=== PATIENT | male | born 1950 | race Caucasian/White ===

== ENCOUNTER 2017-06-15 09:29 | Emergency (ER) | payer OTHER ==
[~2017-06-15] VITALS: Ht 172.7 cm; Wt 70.0 kg
[~2017-06-15 09:29] MED LIST: ACAR50TA PO; ACET-141 PO; AMLO2.5T78 PO; ASPI-664 PO; BUS5 PO; CILO100T PO; DOCU250C68 PO; DUTA0.5C PO; EMPA25TA PO; FOLI-49 PO; GABA100C14 PO; HYDR-906 PO; LISI20TA11 PO; PANT40TA3 PO; PIOG30TA26 PO; PRAV40TA76 PO; SITA1TAB5 PO; TAMS0.4C2 PO; TRAZ50TA18 PO
[2017-06-15 09:30] VITALS: Ht 172.7 cm; Wt 70.0 kg
[2017-06-15] MEDS ORDERED: FLUORESCEIN STRIP RIGHT EYE ONE (10:00)
[2017-06-15] MEDS ORDERED: TETRACAINE 0.5% 4 ML OPH BOTH EYES ONE (10:00)
[2017-06-15] MEDS ORDERED: FLUORESCEIN STRIP LEFT EYE ONE (10:00)
--- NOTE | 2017-06-15 12:30 | ERD ---
ER Documentation Chief Complaint Chief Complaint FEELS SOMETHING IN LT EYE HPI 56-year-old male complaining of bilateral eye irritation 3-4 days. Patient states that he feels like something is in his eye. He is blind in the left eye , but denies decreased vision and his right eye. Denies eye injury or foreign body. Denies itching or burning of the eye. Denies eye discharge. Denies floaters, falling curtain, or other visual defects. ROS All systems reviewed and are negative except as per history of present illness. Medications Home Meds Active Scripts Hydrocodone/Acetaminophen ([place] 5-325 Tablet) 1 Each Tablet, 1 EACH PO Q6H for PAIN, #10 TAB Prov:NEGIN BENAVIDEZ EMERGENCY MANAGEMENT PROGRAM SPECIALIST 07/30/16 Reported Medications Empagliflozin (Jardiance) 25 Mg Tablet, 25 MG PO DAILY, TAB 07/29/16 Sitagliptin Phos/Metformin HCl (Janumet 50-1,000 mg Tablet) 1 Each Tablet, 1 EACH PO BID, TAB 07/29/16 Trazodone Hcl* (Desyrel*) 50 Mg Tablet, 50 MG PO QHS, #30 TAB 07/29/16 Dutasteride* (Avodart*) 0.5 Mg Capsule, 0.5 MG PO DAILY, CAP 07/29/16 Tamsulosin Hcl* (Tamsulosin Hcl*) 0.4 Mg Cap.er.24h, 0.4 MG PO HS, CAP 07/29/16 Pantoprazole* (Protonix*) 40 Mg Tablet.dr, 40 MG PO DAILY, TAB 07/29/16 Aspirin (Low Dose Aspirin) 81 Mg Tablet.dr, 81 MG PO DAILY, #30 TAB 07/29/16 Amlodipine Besylate* (Amlodipine Besylate*) 2.5 Mg Tablet, 2.5 MG PO DAILY, #30 TAB 07/29/16 Docusate Sodium* (Dok*) 250 Mg Capsule, 250 MG PO TID, #60 CAP 07/29/16 Folic Acid* (Folic Acid*) 1 Mg Tablet, 1 MG PO DAILY, TAB 07/29/16 Cilostazol* (Cilostazol*) 100 Mg Tablet, 100 MG PO BID, TAB 02/23/15 Acetaminophen* (Acetaminophen*) 500 MG Extra Strength Tablet, 500 MG PO Q4H Y for PAIN AND OR ELEVATED TEMP, TAB 02/23/15 Gabapentin* (Gabapentin*) 100 Mg Capsule, 200 MG PO QHS, CAP 02/23/15 Gabapentin* (Gabapentin*) 100 Mg Capsule, 100 MG PO QAM, CAP 02/23/15 Lisinopril* (Lisinopril*) 20 Mg Tablet, 20 MG PO DAILY, TAB 02/23/15 Buspirone Hcl* (Buspar*) 5 Mg Tab, 5 MG PO TID, TAB 02/23/15 Acarbose* (Precose*) 50 Mg Tablet, 100 MG PO TID, TAB 02/23/15 Pravastatin Sodium* (Pravastatin Sodium*) 40 Mg Tablet, 40 MG PO HS, TAB 02/23/15 Pioglitazone Hcl* (Pioglitazone Hcl*) 30 Mg Tablet, 30 MG PO DAILY, TAB 02/23/15 Allergies Allergies: Coded Allergies: No Known Allergy (Unverified , 07/29/16) PMhx/Soc History of diabetes, hypertension, high cholesterol. History of Surgery: No Anesthesia Reaction: No Hx Neurological Disorder: No Hx Respiratory Disorders: No Hx Cardiac Disorders: No Hx Psychiatric Problems: No Hx Miscellaneous Medical Probl: No Hx Alcohol Use: No Hx Substance Use: No Hx Tobacco Use: No Smoking Status: Never smoker Physical Exam Vitals Vital Signs Date Time Temp Pulse Resp B/P Pulse Ox O2 Delivery O2 Flow Rate FiO2 06/15/17 09:30 97.6 81 16 115/61 100 Physical Exam General: Well-developed, well-nourished, conscious and coherent, in no distress Skin: Warm and dry without rash, good texture and turgor Head: Normocephalic without evidence of trauma Eyes: Sclera and conjunctivae normal; pupils equal, round. Reactive to light on the right, no light reaction on the left. Left eye deviates to the left. Extraocular movements are intact. Foreign body noted. Neck: Supple without meningismus or adenopathy. Carotids are equal. Trachea midline. No bruits or JVD Chest: Normal AP diameter. Good expansion without retractions. Nontender. Lungs are clear to auscultate bilaterally with good tidal volume Heart: Regular rate and rhythm. No murmur, rub, or gallops heard Extremities: Full range of motion. Good strength bilaterally. No clubbing, cyanosis, or edema. Peripheral pulses are intact. Sensation intact Neuro: Alert and oriented 4, GCS 15. Cranial nerves grossly intact. Motor and sensory exams nonfocal. Moves all extremities. Speech clear. Gait normal Results 24 hrs Current Medications Medications (Trade) Dose Ordered Sig/Tianna Route PRN Reason Start Time Stop Time Status Last Admin Dose Admin Tetracaine HCl (Tetracaine 0.5% Steri-Unit Yolanda) 1 drop ONCE ONCE BOTH EYES 06/15/17 10:00 06/15/17 10:01 DC Fluorescein Sodium (Zrhjr-X-Vzuui) 1 strip ONCE ONCE LEFT EYE 06/15/17 10:00 06/15/17 10:01 DC Fluorescein Sodium (Wxjmd-C-Uewnn) 1 strip ONCE ONCE RIGHT EYE 06/15/17 10:00 06/15/17 10:01 DC Procedures/MDM Tetracaine ophthalmic solution was instilled into patient's bilateral eyes. Fluoresceins dye was then applied. Patient was examined under Wood's lamp. No dye uptake was noted. Bilateral eye pressures checked with Peter-Pen, eye pressures are 20 on the right and 22 on the left. Visual acuity: Right eye 20/25, left eye no vision. Well-appearing 66-year-old male present ED was lateral right irritation 3-4 days. Exams are unremarkable. I doubt acute angle-closure glaucoma, optic neuritis, central retinal artery occlusion, retinal detachment, orbital or periorbital cellulitis, corneal ulcer, or foreign body. Patient advised to follow-up with manager [facility] for further evaluation. Patient appears well, stable for discharge and outpatient management. Medical decision making shared with patient and family. Education provided to patient and family. Patient and family expressed understanding of the plan. Medications on discharge: None. Follow-up: Primary care provider in 2-3 days or return to ED if worse. Disclaimer: Inadvertent spelling and grammatical errors are likely due to EHR/ dictation software use and do not reflect on the overall quality of patient care. Also, please note that the electronic time recorded on this note does not necessarily reflect the actual time of the patient encounter. Departure Diagnosis: Primary Impression: Pain in eye Condition: Stable Patient Instructions: What Is Diabetic Retinopathy? Referrals: SCOTT DENISE (PCP) [facility] Hours: Mon - Fri 9:00 AM - 5:00 PM Additional Instructions: Specialist:Usted tiene preet condicin mdica que requiere que brodie a un especialista dentro de los prximos 1-2 sheth.POR FAVOR,CON MARQUEZ SEGUIMIENTO DE PRIMARIA PHSICIAN refferal. SI USTED NO TIENE UN MDICO GENERAL Y / O USTED NO PUEDE PAGAR lilly a un mdico,los siguientes mejía RECURSOS sido suministrado a usted. ES MARQUEZ RESPONSABILIDAD PARA SER VISTOS POR EL ESPECIALISTA: RAMESH BERRY NP Jun 15, 2017 12:30
== END 2017-06-15 11:35 | disposition home or self-care (01) ==
LOC: FTE 09:29
DX: H57.13 Ocular pain, bilateral (principal); E11.9 Type 2 diabetes mellitus without complications; I10 Essential (primary) hypertension; Z79.82 Long term (current) use of aspirin; Z79.84 Long term (current) use of oral hypoglycemic drugs
CPT/HCPCS: 99283

== ENCOUNTER 2017-08-09 18:26 | Emergency (ER) | payer OTHER ==
[~2017-08-09] VITALS: Ht 167.6 cm; Wt 69.6 kg
[2017-08-09 18:30] VITALS: Ht 167.6 cm; Wt 69.6 kg
[2017-08-09] MEDS ORDERED: SOD CHLORIDE 0.9% 500 ML IV STA (19:10)
[2017-08-09] MEDS ORDERED: ASPIRIN 325 MG TAB PO STA (19:10)
[2017-08-09 19:29] LABS: BASOPHILS % 0.3 % (0.0-2.0); EOSINOPHILS # 0.1 10^3/ul (0.0-0.5); HEMATOCRIT 45.1 % (42.0-52.0); HEMOGLOBIN 14.5 g/dl (14.0-18.0); LYMPHOCYTES # 1.5 10^3/ul (0.8-2.9); LYMPHOCYTES % 21.8 % (15.0-51.0); MEAN CORPUSCULAR HEMOGLOBIN 28.9 pg (29.0-33.0); MEAN CORPUSCULAR HGB CONC 32.2 g/dl (32.0-37.0); MEAN PLATELET VOLUME 9.9 fl (7.4-10.4); MONOCYTE # 0.6 10^3/ul (0.3-0.9); MONOCYTES % 8.2 % (0.0-11.0); NEUTROPHIL # 4.8 10^3/ul (1.6-7.5); NEUTROPHILS % 68.4 % (39.0-77.0); PLATELET COUNT 237 10^3/UL (140-415); RED BLOOD COUNT 5.01 10^6/ul (4.70-6.10); RED CELL DISTRIBUTION WIDTH 13.7 % (11.5-14.5)
[2017-08-09 19:52] LABS: ANION GAP 15 (8-16); BLOOD UREA NITROGEN 25 mg/dl (7-20); CALCIUM 9.3 mg/dl (8.4-10.2); CARBON DIOXIDE 26 mmol/L (21-31); CHLORIDE 104 mmol/L (97-110); CREATININE 1.29 mg/dl (0.61-1.24); GLUCOSE 129 mg/dl (70-220); POTASSIUM 4.2 mmol/L (3.5-5.1); SODIUM 141 mmol/L (135-144)
[2017-08-09 20:03] LABS: B-TYPE NATRIURETIC PEPTIDE 60 PG/ML (0-125)
[2017-08-09 20:08] LABS: TROPONIN-I < 0.012 ng/ml (0.00-0.12)
--- NOTE | 2017-08-09 20:17 | RADRPT ---
PROCEDURE: XR Chest. CLINICAL INDICATION: Chest Pain. TECHNIQUE: Single frontal view of the chest was obtained COMPARISON: Chest radiograph dated July 29, 2016. FINDINGS: The heart is normal in size. The lungs are clear with no focal consolidations, pleural effusions, or pneumothorax. Degenerative changes of the spine are present. IMPRESSION: 1. No acute cardiopulmonary disease. RPTAT:AAJJ Physician Julio César Date Time Electronically viewed and signed by Martín Edwadr Physician on 08/09/2017 20:17 QL/
[2017-08-09 21:00] VITALS: TEMP 97.5
[2017-08-09] MEDS ORDERED: LIDOCAINE/MYLANTA 40 ML BTL PO ONE (23:00)
[2017-08-10] MEDS ORDERED: RANI150T9 PO (00:41)
--- NOTE | 2017-08-10 00:52 | ERD ---
ER Documentation Chief Complaint Chief Complaint chest pain w/ palpitation since 2 hours ago HPI This 66-year-old male presents with palpitations 2 hours also has a sharp substernal chest pain. Denies any shortness of breath or nausea. States that he was resting when the pain occurred. He had recently eaten. ROS All systems reviewed and are negative except as per history of present illness. Medications Home Meds Active Scripts Ranitidine Hcl* (Zantac*) 150 Mg Tablet, 150 MG PO BID, #60 TAB Prov:ISABEL BERG DO 08/10/17 Hydrocodone/Acetaminophen ([place] 5-325 Tablet) 1 Each Tablet, 1 EACH PO Q6H for PAIN, #10 TAB Prov:NEIGN BENAVIDEZ NURSERY SUPERVISOR 07/30/16 Reported Medications Empagliflozin (Jardiance) 25 Mg Tablet, 25 MG PO DAILY, TAB 07/29/16 Sitagliptin Phos/Metformin HCl (Janumet 50-1,000 mg Tablet) 1 Each Tablet, 1 EACH PO BID, TAB 07/29/16 Trazodone Hcl* (Desyrel*) 50 Mg Tablet, 50 MG PO QHS, #30 TAB 07/29/16 Dutasteride* (Avodart*) 0.5 Mg Capsule, 0.5 MG PO DAILY, CAP 07/29/16 Tamsulosin Hcl* (Tamsulosin Hcl*) 0.4 Mg Cap.er.24h, 0.4 MG PO HS, CAP 07/29/16 Pantoprazole* (Protonix*) 40 Mg Tablet.dr, 40 MG PO DAILY, TAB 07/29/16 Aspirin (Low Dose Aspirin) 81 Mg Tablet.dr, 81 MG PO DAILY, #30 TAB 07/29/16 Amlodipine Besylate* (Amlodipine Besylate*) 2.5 Mg Tablet, 2.5 MG PO DAILY, #30 TAB 07/29/16 Docusate Sodium* (Dok*) 250 Mg Capsule, 250 MG PO TID, #60 CAP 07/29/16 Folic Acid* (Folic Acid*) 1 Mg Tablet, 1 MG PO DAILY, TAB 07/29/16 Cilostazol* (Cilostazol*) 100 Mg Tablet, 100 MG PO BID, TAB 02/23/15 Acetaminophen* (Acetaminophen*) 500 MG Extra Strength Tablet, 500 MG PO Q4H Y for PAIN AND OR ELEVATED TEMP, TAB 02/23/15 Gabapentin* (Gabapentin*) 100 Mg Capsule, 200 MG PO QHS, CAP 02/23/15 Gabapentin* (Gabapentin*) 100 Mg Capsule, 100 MG PO QAM, CAP 02/23/15 Lisinopril* (Lisinopril*) 20 Mg Tablet, 20 MG PO DAILY, TAB 02/23/15 Buspirone Hcl* (Buspar*) 5 Mg Tab, 5 MG PO TID, TAB 02/23/15 Acarbose* (Precose*) 50 Mg Tablet, 100 MG PO TID, TAB 02/23/15 Pravastatin Sodium* (Pravastatin Sodium*) 40 Mg Tablet, 40 MG PO HS, TAB 02/23/15 Pioglitazone Hcl* (Pioglitazone Hcl*) 30 Mg Tablet, 30 MG PO DAILY, TAB 02/23/15 Allergies Allergies: Coded Allergies: No Known Allergy (Unverified , 08/09/17) PMhx/Soc History of Surgery: No Anesthesia Reaction: No Hx Neurological Disorder: No Hx Respiratory Disorders: No Hx Cardiac Disorders: Yes (htn) Hx Psychiatric Problems: No Hx Miscellaneous Medical Probl: No Hx Alcohol Use: No Hx Substance Use: No Hx Tobacco Use: No Smoking Status: Never smoker Physical Exam Vitals Vital Signs Date Time Temp Pulse Resp B/P Pulse Ox O2 Delivery O2 Flow Rate FiO2 08/09/17 23:27 73 20 131/65 99 Room Air 08/09/17 21:00 97.5 77 20 130/84 96 Room Air 08/09/17 18:30 97.5 105 20 123/68 97 Physical Exam Const: [] No acute distress Head: Atraumatic Eyes: Normal Conjunctiva ENT: Normal External Ears, Nose and Mouth. Neck: Full range of motion..~ No meningismus. Resp: Clear to auscultation bilaterally Cardio: Regular rate and rhythm, no murmurs Abd: Soft, non tender, non distended. Normal bowel sounds Skin: No petechiae or rashes Back: No midline or flank tenderness Ext: No cyanosis, or edema Neur: Awake and alert oriented 3, no focal deficits Psych: Normal Mood and Affect Result Diagram: 08/09/17191408/09/171914 Results 24 hrs Laboratory Tests Test 08/09/17 19:15 08/09/17 23:09 White Blood Count 7.010^3/ul Red Blood Count 5.0110^6/ul Hemoglobin 14.5g/dl Hematocrit 45.1% Mean Corpuscular Volume 90.0fl Mean Corpuscular Hemoglobin 28.9pg Mean Corpuscular Hemoglobin Concent 32.2g/dl Red Cell Distribution Width 13.7% Platelet Count 32688^3/UL Mean Platelet Volume 9.9fl Neutrophils % 68.4% Lymphocytes % 21.8% Monocytes % 8.2% Eosinophils % 1.0% Basophils % 0.3% Nucleated Red Blood Cells % 0.0/100WBC Neutrophils # 4.810^3/ul Lymphocytes # 1.510^3/ul Monocytes # 0.610^3/ul Eosinophils # 0.110^3/ul Basophils # 0.010^3/ul Nucleated Red Blood Cells # 0.010^3/ul Sodium Level 141mmol/L Potassium Level 4.2mmol/L Chloride Level 104mmol/L Carbon Dioxide Level 26mmol/L Anion Gap 15 Blood Urea Nitrogen 25mg/dl Creatinine 1.29mg/dl Glucose Level 129mg/dl Calcium Level 9.3mg/dl Troponin I < 0.012ng/ml < 0.012ng/ml B-Type Natriuretic Peptide 60PG/ML Current Medications Medications (Trade) Dose Ordered Sig/Tianna Route PRN Reason Start Time Stop Time Status Last Admin Dose Admin Sodium Chloride (NS) 500 ml @ 500 mls/hr Q1H STAT IV 08/09/17 19:10 08/09/17 20:09 DC 08/09/17 19:25 Aspirin (Aspirin) 325 mg ONCE STAT PO 08/09/17 19:10 08/09/17 19:11 DC 08/09/17 19:25 Miscellaneous Medication (Gi Cocktail (2)) 40 ml ONCE ONCE PO 08/09/17 23:00 08/09/17 23:01 DC 08/09/17 23:17 Procedures/MDM 66-year-old male with chest pain that appears to be nonischemic and mild renal insufficiency. Was given aspirin and placed on cardiac monitors. He still had chest pain today was given a GI cocktail which resolved his chest pain completely. Nonischemic EKG and 2 negative troponins make very unlikely these having acute coronary syndrome. Was offered IV fluid and the patient said that he would be able to drink extra fluid because of his renal insufficiency. Told him he should follow-up first thing on Saturday with his doctor. He said his doctor is closed on Saturday we can see him on Saturday. Recommend he gets cardiac echocardiogram and I am giving him his laboratories so the doctor can investigate renal insufficiency and track his creatinine. EKG interpretation: Normal sinus rhythm rate of 89, normal axis, benign early repolarization apparent in leads V3 and V4, ST or T-wave changes concerning for acute ischemia, normal intervals. Normal battery vent plug inserter interpretation: Normal sinus rhythm arrhythmia [place] interpretation: I see no acute process. I see no pulmonary edema, no infiltrates, no pneumothorax, no fractures Departure Diagnosis: Primary Impression: Palpitation Additional Impressions: Chest pain Renal insufficiency Condition: Stable Patient Instructions: Chest Pain, Uncertain Cause, Gerd (Adult), Palpitations Additional Instructions: Llame al doctor MAANA y sydney preet DARYA PARA DENTRO DE 2-3 ESCOBAR. Consigue preet darya para un ECHOCARDIOGRAMA. Dgale a la secretaria que nosotros le instruimos hacer esta darya.Avise o llame si delacruz condicin se empeora antes de la darya. Regresa aqui si peor o no mejor. ISABEL BERG DO Aug 10, 2017 00:52
[2017-08-10 01:14] VITALS: BP 138/80; PULSE 72; RESP 18
== END 2017-08-10 01:16 | disposition home or self-care (01) ==
LOC: E/R 18:26
DX: R00.2 Palpitations (principal); R07.9 Chest pain, unspecified; N28.9 Disorder of kidney and ureter, unspecified; I10 Essential (primary) hypertension; Z79.82 Long term (current) use of aspirin; Z79.84 Long term (current) use of oral hypoglycemic drugs
CPT/HCPCS: 36415; 71010; 80048; 83880; 84484; 85025; 99285; J7040; 93005

== ENCOUNTER 2017-09-03 11:17 | Emergency (ER) | END 2017-09-03 15:35 | disposition home or self-care (01) ==

== ENCOUNTER 2017-11-08 17:22 | Emergency (ER) | END 2017-11-08 20:10 | disposition home or self-care (01) ==